=== PATIENT | female | born 1990 | race Two or more races ===

== ENCOUNTER 2023-12-09 15:48 | Emergency (ER) | payer MEDICAID ==
[~2023-12-09] VITALS: Ht 167.6 cm; Wt 115.9 kg
[2023-12-09] MEDS ORDERED: PHEN-748 PO (15:58)
[2023-12-09] MEDS ORDERED: IBUP-45 PO (15:58)
[2023-12-09 16:02] VITALS: TEMP 98.1
[2023-12-09 17:19] LABS: INFLUENZA A-RTPCR,COMBO NEGATIVE (NEGATIVE); INFLUENZA B-RTPCR,COMBO NEGATIVE (NEGATIVE); RESPIRATORY SYNCYTIAL VRS-PCR NEGATIVE (NEGATIVE); SARS COVID19 RTPCR, COMBO NEGATIVE (NEGATIVE)
[2023-12-09 18:35] VITALS: BP 112/78; PULSE 88; RESP 16
== END 2023-12-09 19:41 | disposition left against medical advice (07) ==
LOC: EMS 16:01
DX: R50.9 Fever, unspecified (principal); J02.9 Acute pharyngitis, unspecified; Z20.822 Contact with and (suspected) exposure to COVID-19; Z53.21 Procedure and treatment not carried out due to patient leaving prior to being seen by health care provider
CPT/HCPCS: 0241U; 99281; Z7502